=== PATIENT | male | born 1975 ===

== ENCOUNTER 2022-02-20 20:42 | Inpatient (IN) ==
[2022-02-20] MEDS ORDERED: GLUCAGON 1 MG VIAL IM PRN (21:56)
[2022-02-20] MEDS ORDERED: ALUMINUM/MAGNES/SIMETH MAX STR 30 ML UDCUP PO PRN (21:56)
[2022-02-20] MEDS ORDERED: ACETAMINOPHEN 325 MG TABLET PO PRN (21:56)
[2022-02-20] MEDS ORDERED: ONDANSETRON 4 MG/2 ML VIAL IV PRN (21:56)
[2022-02-20] MEDS ORDERED: hydrALAZINE 20 MG/1 ML VIAL IV PRN (21:56)
[2022-02-20] MEDS ORDERED: DEXTROSE 10% 250 ML BAG IV PRN (22:11)
[2022-02-20] MEDS ORDERED: VANCOMYCIN INJ 1,250 MG in SODIUM CHLORIDE 0.9% 250 ML IV SCH (22:30)
[2022-02-20] MEDS ORDERED: SODIUM CHLORIDE 0.9% 1,000 ML IV SCH (22:30)
[2022-02-20] MEDS: HYDROmorphone 1 MG/1 ML SYRINGE IV PRN (23:08)
[2022-02-21] MEDS: CLINDAMYCIN INJ 600 MG/50 ML PREMIX IV SCH ×3 (00:58→16:05)
[2022-02-21] MEDS: HYDROmorphone 1 MG/1 ML SYRINGE IV PRN ×7 (02:37→22:50)
[2022-02-21 05:22] LABS: Basophils # 0.1 10*3/uL (0.0-0.2); Basophils % 0.2 % (0.0-0.8); Eosinophils # 0.1 10*3/uL (0.0-0.87); Eosinophils % 0.5 % (0.00-10.9); Hematocrit 34.5 VOL% (42.0-52.0); Hemoglobin 10.9 GM/DL (14.0-18.0); Immature Granulocytes % 1.2 %; Immature Granulocytes Absolute 0.32 #; Lymphocytes # 2.4 10*3/uL (1.4-4.0); Lymphocytes % 9.2 % (21.2-54.2); Mean Corpuscular HGB Conc 31.6 GM/DL (32-36); Mean Corpuscular Volume 87.3 FL (87-102); Mean Platelet Volume 9.8 FL (9.6-12.0); Monocytes # 2.1 10*3/uL (0.11-0.8); Monocytes % 8.1 % (1.7-12.7); Neutrophils % 80.8 % (38.7-73.9); Platelet Count 443 T/CUMM (130-400); Red Blood Count 3.95 MC/CUMM (3.8-5.5); Red Cell Distribution Width 12.6 % (9.3-17.3); White Blood Count 26.1 T/CUMM (4-12)
[2022-02-21 05:39] LABS: Calcium 8.5 MG/DL (8.5-10.1); Osmolality,Calculated 286.4 MOS/KG (273-304); Potassium 3.9 MMOL/L (3.5-5.1)
[2022-02-21 07:14] LABS: Lymphocytes 7 % (20-55); Platelet Estimate Normal; Total Cells Counted 100
[2022-02-21] MEDS: INSULIN REGULAR 100 UNIT/ML SUBCUT SCH ×4 (08:07→20:03)
[2022-02-21] MEDS: PANTOPRAZOLE 40 MG TABLET PO SCH (08:08)
[2022-02-21] MEDS: DOCUSATE SODIUM 100 MG CAPSULE PO SCH ×2 (08:08→20:03)
[2022-02-21] MEDS ORDERED: MEPERIDINE 25 MG/1 ML VIAL IV PRN (08:26)
[2022-02-21] MEDS ORDERED: diphenhydrAMINE 50 MG/1 ML VIAL IV PRN (08:26)
[2022-02-21] MEDS ORDERED: PROMETHAZINE INJ 25 MG in SODIUM CHLORIDE 0.9% 50 ML IV PRN (08:26)
[2022-02-21] MEDS ORDERED: ONDANSETRON 4 MG/2 ML VIAL IV PRN (08:26)
[2022-02-21] MEDS ORDERED: ENOXAPARIN 40 MG/0.4 ML SYRINGE SUBCUT SCH (09:00)
[2022-02-21] MEDS ORDERED: propofoL 200 MG/20 ML VIAL IV ONE (09:50)
[2022-02-21] MEDS ORDERED: LIDOCAINE 2% 5 ML VIAL ONE (09:50)
[2022-02-21] MEDS ORDERED: SEVOFLURANE 1 UNIT/15 MINUTE INH ONE ×5 (09:50→11:19)
[2022-02-21] MEDS ORDERED: fentaNYL 100 MCG/2 ML VIAL ONE ×2 (09:50→10:26)
[2022-02-21] MEDS ORDERED: MIDAZOLAM 2 MG/2 ML VIAL ONE (09:50)
[2022-02-21] MEDS ORDERED: PHENYLEPHRINE 1 MG/10 ML SYRINGE IV ONE (10:26)
[2022-02-21] MEDS ORDERED: ePHEDrine 50 MG/ML VIAL ONE (10:53)
[2022-02-21] MEDS ORDERED: NEOMYCIN/POLYMYXIN/BACITRACIN OINT 28.4 GM TUBE TOP ONE (10:55)
[2022-02-21] MEDS ORDERED: ACETAMINOPHEN INJ 1,000 MG/100 ML VIAL IV ONE ×2 (11:15→11:53)
[2022-02-21] MEDS ORDERED: PROMETHAZINE 25 MG/1 ML VIAL ONE (11:44)
[2022-02-21] MEDS ORDERED: LACTATED RINGERS 1,000 ML IV ONE (11:53)
[2022-02-21] MEDS: LACTATED RINGERS 1,000 ML IV SCH (11:57)
[2022-02-21] MEDS ORDERED: VANCOMYCIN INJ 1,500 MG in SODIUM CHLORIDE 0.9% 500 ML IV SCH (15:00)
[2022-02-22] MEDS: LACTATED RINGERS 1,000 ML IV SCH ×3 (00:53→12:46)
[2022-02-22] MEDS: CLINDAMYCIN INJ 600 MG/50 ML PREMIX IV SCH ×3 (00:55→16:28)
[2022-02-22] MEDS: HYDROmorphone 1 MG/1 ML SYRINGE IV PRN ×5 (03:32→21:08)
[2022-02-22 04:11] LABS: Bacteria,Urine Occasional /HPF (Few); Mucus,Urine Occasional /LPF (Occasional); RBC,Urine <1 /HPF (0-4); Squamous Epithelial Cell,Urine Occasional /HPF (0-10)
[2022-02-22 04:12] LABS: Bilirubin,Urine Negative (Negative); Blood, Urine Negative (Negative); Glucose,Urine (UA) >1000 mg/dL (Negative); Ketones,Urine Negative (Negative); Nitrite,Urine Negative (Negative); Protein,Urine 30 mg/dL (Negative); Urine Appearance Clear (Clear); Urine Color Yellow (Yellow); Urine Specific Gravity < 1.005 (1.001-1.035); Urine Urobilinogen 0.2 eU/dL (<2.0)
[2022-02-22 05:18] LABS: Basophils # 0.1 10*3/uL (0.0-0.2); Basophils % 0.2 % (0.0-0.8); Eosinophils # 0.2 10*3/uL (0.0-0.87); Hematocrit 31.6 VOL% (42.0-52.0); Hemoglobin 9.9 GM/DL (14.0-18.0); Immature Granulocytes % 1.1 %; Immature Granulocytes Absolute 0.25 #; Lymphocytes # 2.4 10*3/uL (1.4-4.0); Lymphocytes % 10.6 % (21.2-54.2); Mean Corpuscular HGB Conc 31.3 GM/DL (32-36); Mean Corpuscular Volume 88.3 FL (87-102); Mean Platelet Volume 9.5 FL (9.6-12.0); Monocytes # 1.8 10*3/uL (0.11-0.8); Monocytes % 7.7 % (1.7-12.7); Neutrophils % 79.4 % (38.7-73.9); Platelet Count 415 T/CUMM (130-400); Red Blood Count 3.58 MC/CUMM (3.8-5.5); Red Cell Distribution Width 12.9 % (9.3-17.3); White Blood Count 23.1 T/CUMM (4-12)
[2022-02-22 05:34] LABS: Calcium 8.4 MG/DL (8.5-10.1); Osmolality,Calculated 286.5 MOS/KG (273-304); Potassium 3.6 MMOL/L (3.5-5.1)
[2022-02-22 05:47] LABS: Band Neutrophils 5 % (0-10); Lymphocytes 10 % (20-55); Microcytosis Slight; Total Cells Counted 100
[2022-02-22] MEDS: DOCUSATE SODIUM 100 MG CAPSULE PO SCH ×2 (08:59→21:03)
[2022-02-22] MEDS: PANTOPRAZOLE 40 MG TABLET PO SCH (09:00)
[2022-02-22] MEDS ORDERED: ENOXAPARIN 40 MG/0.4 ML SYRINGE SUBCUT SCH (09:00)
[2022-02-22] MEDS: INSULIN REGULAR 100 UNIT/ML SUBCUT SCH ×4 (09:31→21:02)
[2022-02-22] MEDS ORDERED: fentaNYL 100 MCG/2 ML VIAL ONE ×2 (11:06→12:23)
[2022-02-22] MEDS ORDERED: MIDAZOLAM 2 MG/2 ML VIAL ONE ×2 (11:06→12:23)
[2022-02-22] MEDS ORDERED: propofoL 200 MG/20 ML VIAL IV ONE ×2 (11:06→12:23)
[2022-02-22] MEDS ORDERED: LIDOCAINE 2% 5 ML VIAL ONE ×2 (11:06→12:23)
[2022-02-22] MEDS ORDERED: LACTATED RINGERS 1,000 ML IV SCH (12:00)
[2022-02-22] MEDS ORDERED: SEVOFLURANE 1 UNIT/15 MINUTE INH ONE ×3 (12:23→13:45)
[2022-02-22] MEDS ORDERED: DEXAMETHASONE 4 MG/1 ML VIAL ONE (12:23)
[2022-02-22] MEDS ORDERED: ONDANSETRON 4 MG/2 ML VIAL ONE (12:23)
[2022-02-22] MEDS ORDERED: PHENYLEPHRINE 1 MG/10 ML SYRINGE IV ONE (13:16)
[2022-02-22] MEDS ORDERED: LACTATED RINGERS 1,000 ML IV ONE (13:36)
[2022-02-22] MEDS ORDERED: ONDANSETRON 4 MG/2 ML VIAL IV PRN (14:17)
[2022-02-22] MEDS ORDERED: INSULIN GLARGINE 100 UNIT/ML SUBCUT SCH ×2 (21:00)
[2022-02-22] MEDS: DAPAGLIFLOZIN 10 MG TABLET PO SCH (21:03)
[2022-02-22] MEDS: lisinopriL 10 MG TABLET PO SCH (21:03)
[2022-02-23] MEDS: LACTATED RINGERS 1,000 ML IV SCH ×3 (00:02→16:38)
[2022-02-23] MEDS: CLINDAMYCIN INJ 600 MG/50 ML PREMIX IV SCH ×2 (01:10→08:30)
[2022-02-23 05:13] LABS: Basophils % 0.1 % (0.0-0.8); Eosinophils % 0.1 % (0.00-10.9); Hemoglobin 8.9 GM/DL (14.0-18.0); Immature Granulocytes % 1.6 %; Immature Granulocytes Absolute 0.31 #; Lymphocytes # 1.3 10*3/uL (1.4-4.0); Lymphocytes % 6.7 % (21.2-54.2); Mean Corpuscular HGB Conc 31.8 GM/DL (32-36); Mean Corpuscular Volume 88.1 FL (87-102); Mean Platelet Volume 9.5 FL (9.6-12.0); Monocytes # 0.9 10*3/uL (0.11-0.8); Monocytes % 4.6 % (1.7-12.7); Neutrophils % 86.9 % (38.7-73.9); Platelet Count 400 T/CUMM (130-400); Red Blood Count 3.18 MC/CUMM (3.8-5.5); White Blood Count 18.8 T/CUMM (4-12)
[2022-02-23 05:28] LABS: Calcium 7.9 MG/DL (8.5-10.1); Osmolality,Calculated 289.1 MOS/KG (273-304); Potassium 4.4 MMOL/L (3.5-5.1)
[2022-02-23 06:28] LABS: Protein/Creatinine Ratio,Urine 0.9 RATIO
[2022-02-23] MEDS: INSULIN REGULAR 100 UNIT/ML SUBCUT SCH ×4 (08:27→21:24)
[2022-02-23] MEDS: PANTOPRAZOLE 40 MG TABLET PO SCH (08:28)
[2022-02-23] MEDS ORDERED: INSULIN GLARGINE 100 UNIT/ML SUBCUT SCH (09:21)
[2022-02-23] MEDS: DAPAGLIFLOZIN 10 MG TABLET PO SCH (10:23)
[2022-02-23] MEDS: ENOXAPARIN 40 MG/0.4 ML SYRINGE SUBCUT SCH (10:23)
[2022-02-23] MEDS: DOCUSATE SODIUM 100 MG CAPSULE PO SCH ×2 (10:23→21:24)
[2022-02-23] MEDS: lisinopriL 10 MG TABLET PO SCH (10:23)
[2022-02-23] MEDS: glyBURIDE 5 MG TABLET PO SCH ×2 (10:26→16:37)
[2022-02-23] MEDS: OXACILLIN 2,000 MG in SODIUM CHLORIDE 0.9% 100 ML IV SCH ×2 (13:09→18:36)
[2022-02-23] MEDS: MORPHINE 2 MG/1 ML SYRINGE IV PRN (23:04)
[2022-02-24] MEDS: OXACILLIN 2,000 MG in SODIUM CHLORIDE 0.9% 100 ML IV SCH ×4 (01:01→18:02)
[2022-02-24] MEDS: LACTATED RINGERS 1,000 ML IV SCH ×4 (01:01→21:36)
[2022-02-24] MEDS: MORPHINE 2 MG/1 ML SYRINGE IV PRN ×3 (03:29→22:20)
[2022-02-24 06:08] LABS: Basophils % 0.2 % (0.0-0.8); Eosinophils # 0.3 10*3/uL (0.0-0.87); Eosinophils % 1.6 % (0.00-10.9); Hematocrit 30.9 VOL% (42.0-52.0); Hemoglobin 9.9 GM/DL (14.0-18.0); Immature Granulocytes % 2.4 %; Lymphocytes # 2.6 10*3/uL (1.4-4.0); Lymphocytes % 15.4 % (21.2-54.2); Monocytes # 1.2 10*3/uL (0.11-0.8); Neutrophils % 73.4 % (38.7-73.9); Platelet Count 444 T/CUMM (130-400); Red Blood Count 3.55 MC/CUMM (3.8-5.5); Red Cell Distribution Width 13.1 % (9.3-17.3); White Blood Count 16.6 T/CUMM (4-12)
[2022-02-24 06:24] LABS: Calcium 8.2 MG/DL (8.5-10.1); Osmolality,Calculated 291.4 MOS/KG (273-304); Potassium 3.6 MMOL/L (3.5-5.1)
[2022-02-24] MEDS: INSULIN REGULAR 100 UNIT/ML SUBCUT SCH ×4 (08:37→21:18)
[2022-02-24] MEDS: INSULIN GLARGINE 100 UNIT/ML SUBCUT SCH (08:38)
[2022-02-24] MEDS ORDERED: MULTIVITAMIN (CENTRUM) TABLET PO SCH (09:00)
[2022-02-24] MEDS: DAPAGLIFLOZIN 10 MG TABLET PO SCH (09:14)
[2022-02-24] MEDS: glyBURIDE 5 MG TABLET PO SCH ×2 (09:14→17:24)
[2022-02-24] MEDS: DOCUSATE SODIUM 100 MG CAPSULE PO SCH ×2 (09:14→21:14)
[2022-02-24] MEDS: PANTOPRAZOLE 40 MG TABLET PO SCH (09:15)
[2022-02-24] MEDS: ENOXAPARIN 40 MG/0.4 ML SYRINGE SUBCUT SCH (09:15)
[2022-02-24] MEDS: lisinopriL 10 MG TABLET PO SCH (09:15)
[2022-02-24] MEDS: LOSARTAN 50 MG PO SCH (21:12)
[2022-02-25] MEDS: OXACILLIN 2,000 MG in SODIUM CHLORIDE 0.9% 100 ML IV SCH ×3 (00:16→12:00)
[2022-02-25] MEDS: MORPHINE 2 MG/1 ML SYRINGE IV PRN ×2 (04:24→09:13)
[2022-02-25] MEDS: LACTATED RINGERS 1,000 ML IV SCH (04:42)
[2022-02-25 05:21] LABS: Basophils % 0.4 % (0.0-0.8); Eosinophils # 0.2 10*3/uL (0.0-0.87); Eosinophils % 1.8 % (0.00-10.9); Hematocrit 30.5 VOL% (42.0-52.0); Hemoglobin 9.6 GM/DL (14.0-18.0); Immature Granulocytes % 1.8 %; Immature Granulocytes Absolute 0.19 #; Lymphocytes # 2.8 10*3/uL (1.4-4.0); Lymphocytes % 26.3 % (21.2-54.2); Mean Corpuscular HGB Conc 31.5 GM/DL (32-36); Mean Corpuscular Volume 87.9 FL (87-102); Mean Platelet Volume 9.1 FL (9.6-12.0); Monocytes # 0.9 10*3/uL (0.11-0.8); Monocytes % 8.7 % (1.7-12.7); Platelet Count 417 T/CUMM (130-400); Red Blood Count 3.47 MC/CUMM (3.8-5.5); Red Cell Distribution Width 13.1 % (9.3-17.3); White Blood Count 10.5 T/CUMM (4-12)
[2022-02-25 05:34] LABS: Calcium 8.2 MG/DL (8.5-10.1); Osmolality,Calculated 285.5 MOS/KG (273-304); Potassium 3.5 MMOL/L (3.5-5.1)
[2022-02-25] MEDS: INSULIN REGULAR 100 UNIT/ML SUBCUT SCH ×2 (07:58→11:59)
[2022-02-25] MEDS: LOSARTAN 50 MG PO SCH (08:45)
[2022-02-25] MEDS: glyBURIDE 5 MG TABLET PO SCH (08:46)
[2022-02-25] MEDS: INSULIN GLARGINE 100 UNIT/ML SUBCUT SCH (08:48)
[2022-02-25] MEDS ORDERED: IRON PO SCH (09:00)
[2022-02-25] MEDS ORDERED: MULTIVITAMIN PO SCH (09:00)
[2022-02-25] MEDS: ENOXAPARIN 40 MG/0.4 ML SYRINGE SUBCUT SCH (09:38)
[2022-02-25] MEDS: PANTOPRAZOLE 40 MG TABLET PO SCH (09:38)
[2022-02-25] MEDS: DOCUSATE SODIUM 100 MG CAPSULE PO SCH (09:38)
[2022-02-25 12:26] VITALS: BP 143/81
[2022-02-27] MEDS ORDERED: ERGOCALCIFEROL 50,000 UNIT CAPSULE PO SCH (09:00)
== END 2022-02-25 14:20 | disposition home or self-care (01) | DRG 464 ==
LOC: EDUNIT# → N.ED 20:42 → N.3E 21:56
PROVIDERS: ADMIT Internal Medicine; ATTEND Internal Medicine